=== PATIENT | female | born 1970 | race Caucasian/White ===

== ENCOUNTER → 2019-04-22 15:23 | Outpatient (CLI) | payer OTHER, SELFPAY ==
[2019-04-22 17:49] LABS: AST(SGOT) 31 U/L (15-37); Alanine Aminotransfer ALT/SGPT 33 U/L (13-56); Albumin, Serum 3.4 g/dL (3.2-5.0); Alkaline Phosphatase 48 U/L (45-117); Globulin 3.5 g/dL (2.2-4.2); Protein, Total 6.9 g/dL (6.4-8.2)
[2019-04-22 17:57] LABS: International Normalized Ratio 1.4; Prothrombin Time (Protime)PT. 16.5 SECONDS (11.7-14.9)
[2019-04-22 17:58] LABS: Partial Thromboplast Time 38.8 Seconds (24.1-36.2)
[2019-04-25 10:15] LABS: AFP, Tumor Marker 1.9 ng/mL (0.0-8.3)
== END ==
PROVIDERS: Family Provider Family Medicine; PCP Family Medicine; Referring Provider Internal Medicine Gastroenterology; Visit Provider Internal Medicine Gastroenterology
DX: K74.60 Unspecified cirrhosis of liver (principal)
CPT/HCPCS: 36415; 80076; 82105; 85610; 85730